=== PATIENT | male | born 1960 | race American Indian/Alaskan Native ===

== ENCOUNTER 2016-10-02 12:26 | Emergency (ER) | payer MEDICARE ==
[2016-10-02 12:48] VITALS: BMI 28.3
[2016-10-02 12:51] VITALS: RESP 16; TEMP 98.2
[2016-10-02] MEDS ORDERED: Oxycodone/Acetaminophen 5/325 mg Tab PO STA (13:03)
--- NOTE | 2016-10-02 13:06 | ED PDOC ---
Arrival/HPI - General Chief Complaint: Upper Extremity Problem/Injury Time Seen by Provider: 10/02/16 13:03 Historian: Patient - History of Present Illness Narrative History of Present Illness (Text): 10/02/16 13:04 56 y/o male, nkda, c/o rt. elbow pain s/p slipped and fall to the rt. elbow yesterday. Pt. stated that he slipped in the bathroom, landed the rt. elbow on the bathtub, no rib or chest injury, no abdominal injury, no dizziness, no coughing, no hemoptysis, no dizziness, no other medical or psychological complaints. Past Medical History - Provider Review Nursing Documentation Reviewed: Yes - Infectious Disease Hx of Infectious Diseases: None - Tetanus Immunization Tetanus Immunization: Unknown - Past Medical History Past Medical History: No Previous - Cardiac Hx Cardiac Disorders: Yes Hx Hypertension: Yes - Pulmonary Hx Respiratory Disorders: No - Neurological Hx Neurological Disorder: No - HEENT Hx HEENT Disorder: No - Renal Hx Renal Disorder: No - Endocrine/Metabolic Hx Endocrine Disorders: No - Hematological/Oncological Hx Blood Disorders: No - Integumentary Hx Dermatological Disorder: No - Musculoskeletal/Rheumatological Hx Musculoskeletal Disorders: No Hx Falls: No - Gastrointestinal Hx Gastrointestinal Disorders: Yes (INGUINAL HERNIA REPAIR (3 YEARS AGO)) - Genitourinary/Gynecological Hx Genitourinary Disorders: No - Psychiatric Hx Psychophysiologic Disorder: Yes Hx Bipolar Disorder: No Hx Depression: No Hx Emotional Abuse: No Hx Hallucinations: Yes Hx Physical Abuse: No Hx Substance Use: No Other/Comment: suicidal attempt - Surgical History Hx Inguinal Hernia Repair: Yes (2009) - Anesthesia Hx Anesthesia Reactions: No Hx Malignant Hyperthermia: No - Suicidal Assessment Feels Threatened In Home Enviroment: No Family/Social History - Physician Review Nursing Documentation Reviewed: Yes Family/Social History: Unknown Family HX Smoking Status: Former Smoker Hx Alcohol Use: No Hx Substance Use: No Hx Substance Use Treatment: No Allergies/Home Meds Allergies/Adverse Reactions: Allergies No Known Allergies Allergy (Verified 10/02/16 12:47) Home Medications: Home Meds Medication Instructions Recorded Confirmed Ranitidine HCl [Zantac 75] 150 mg PO DAILY 11/11/15 10/02/16 Cetirizine HCl [Zyrtec] 10 mg PO DAILY 11/12/15 10/02/16 Ergocalciferol (Vitamin D2) 50,000 units PO QWK 11/12/15 10/02/16 [Vitamin D2] Review of Systems - Review of Systems Constitutional: absent: Fatigue, Fevers Eyes: absent: Vision Changes ENT: absent: Hearing Changes Respiratory: absent: SOB, Cough Cardiovascular: absent: Chest Pain Gastrointestinal: absent: Abdominal Pain, Nausea, Vomiting Musculoskeletal: Arthralgias, Joint Swelling. absent: Back Pain, Neck Pain, Myalgias Skin: absent: Rash, Pruritis, Skin Lesions, Laceration Neurological: absent: Headache, Dizziness, Focal Weakness Physical Exam Vital Signs Reviewed: Yes Vital Signs Temp Pulse Resp BP Pulse Ox 10/02/16 12:47 98.2 F 74 16 142/79 96 Temperature: Afebrile Blood Pressure: Normal Pulse: Regular Respiratory Rate: Normal Appearance: Positive for: Well-Appearing, Non-Toxic, Comfortable Pain Distress: Severe Mental Status: Positive for: Alert and Oriented X 3 - Systems Exam Head: Present: Atraumatic, Normocephalic Pupils: Present: PERRL Extroacular Muscles: Present: EOMI Conjunctiva: Present: Normal Mouth: Present: Moist Mucous Membranes Neck: Present: Normal Range of Motion Respiratory/Chest: Present: Clear to Auscultation, Good Air Exchange, Other (no ecchymosis). No: Respiratory Distress, Accessory Muscle Use, Wheezes, Decreased Breath Sounds, Rales, Retracting, Rhonchi, Tachypneic, Tender to Palpation Cardiovascular: Present: Regular Rate and Rhythm, Normal S1, S2. No: Murmurs Abdomen: Present: Normal Bowel Sounds, Other (no [id number]). No: Tenderness, Distention, Peritoneal Signs, Rebound, Guarding Back: Present: Normal Inspection Upper Extremity: Present: Normal Inspection, Other (Rt. upper extremity: +ttp on the medial aspect of the elbow with mild swelling and ecchymosis, skin intact , no laceration or abrasion, FROM without limtiation, sensation intact, motor 5/ 5, +radial pulse, capillary refill< 2 seconds, neurovascular intact. ). No: Cyanosis, Edema Lower Extremity: Present: Normal Inspection. No: Edema Neurological: Present: GCS=15, CN II-XII Intact, Speech Normal Skin: Present: Warm, Dry, Normal Color. No: Rashes Psychiatric: Present: Alert, Oriented x 3, Normal Insight, Normal Concentration Medical Decision Making ED Course and Treatment: 10/02/16 13:06 -rt. elbow xray -motrin and percocet -observe and reassess 10/02/16 13:44 -xray show no fracture or dislocation -sling applied for supportive treatment -Discharge home with naproxen, sling, ice compression, follow up with your own pmd and orthopedic within 2 days, return to the ER for any new or worsening signs or symptoms. - RAD Interpretation Radiology Orders: 10/02/16 13:03 ELBOW RIGHT 3 VIEWS ROUTINE [RAD] Stat unremarkable radiograph of the rt. elbow [employer] Teacher: Radiologist - Medication Orders Current Medication Orders: Discontinued Medications Ibuprofen (Motrin Tab) 600 mg PO STAT STA Stop: 10/02/16 13:04 Oxycodone/Acetaminophen (Percocet 5/325 Mg Tab) 1 tab PO STAT STA Stop: 10/02/16 13:04 - PA / BAG MAKER / Resident Statement / has reviewed & agrees with the documentation as recorded. Disposition/Present on Arrival - Present on Arrival Any Indicators Present on Arrival: No History of DVT/PE: No History of Uncontrolled Diabetes: No Urinary Catheter: No History of Decub. Ulcer: No History Surgical Site Infection Following: None - Disposition Have Diagnosis and Disposition been Completed?: Yes Diagnosis: Elbow injury, Elbow contusion Disposition: HOME/ ROUTINE Disposition Time: 13:18 Patient Plan: Discharge Patient Problems: Current Active Problems Problem Status Onset Elbow contusion Acute Elbow injury Acute Condition: IMPROVED Additional Instructions: Discharge home with naproxen, sling, ice compression, follow up with your own pmd and orthopedic within 2 days, return to the ER for any new or worsening signs or symptoms. Prescriptions: Naproxen 500 mg PO BID PRN #20 tab PRN Reason: Other Referrals: Vargas Howard MD [Staff Provider] - Follow up with primary [facility] at [facility] [place] [Outside] - Follow up with primary Forms: WORK NOTE
--- NOTE | 2016-10-02 13:51 | RAD ---
PROCEDURE: Radiographs of the right elbow. HISTORY: rt. elbow injury from fall, COMPARISON: No prior. FINDINGS: BONES: Normal. No fracture. JOINTS: Normal. No osteoarthritis. SOFT TISSUES: Normal. JOINT EFFUSION: None. OTHER FINDINGS: None. IMPRESSION: Unremarkable radiographs of the right elbow.
[2016-10-02 14:33] VITALS: BP 140/80; PULSE 78; O2SAT 97
== END 2016-10-02 14:32 | disposition home or self-care (01) ==
LOC: ED 12:26
DX: S50.01XA Contusion of right elbow, initial encounter (principal); S59.901A Unspecified injury of right elbow, initial encounter; W01.0XXA Fall on same level from slipping, tripping and stumbling without subsequent striking against object, initial encounter